=== PATIENT | male | born 1935 | race Caucasian/White ===

== ENCOUNTER → 2017-04-08 | Outpatient (CLI) | payer MEDICARE, OTHER ==
[~2017-04-08] MED LIST: 24HR ALLERGY REL5 MG PO; ACET500 PO; ACET80 PO; ALBU90OI6 INH; ASPI325 PO; ASPI81CH PO; Aspirin EC325 MG PO; BUDE10.22 INH; BUDE6HFA INH; FINA5 PO; Hair, Skin & N1 EACH PO; LEVOCETIRIZINE D5 MG PO; Lopressor 25 mg25 MG PO; MAGOXI400 PO; MULVITMIND PO; NASACORT10.8 ML NS; NASAL ALLERGY S13 ML; RAMI5 PO; TAMS.4ER PO
== END | disposition home or self-care (01) ==
LOC: LAB 11:23
DX: C61 Malignant neoplasm of prostate (principal)
CPT/HCPCS: 87070

== ENCOUNTER → 2017-05-06 | Outpatient (CLI) | payer MEDICARE, OTHER | LOC: PLD 11:36 | DX: C61 Malignant neoplasm of prostate (principal) | CPT/HCPCS: 88305 ==

== ENCOUNTER 2017-12-05 11:01 | Emergency (ER) | payer OTHER, MEDICARE ==
[~2017-12-05] VITALS: Ht 177.8 cm; Wt 104.3 kg
[~2017-12-05 11:01] MED LIST changes: -24HR ALLERGY REL5 MG PO; -ACET80 PO; -Aspirin EC325 MG PO; -FINA5 PO; -Hair, Skin & N1 EACH PO; -Lopressor 25 mg25 MG PO; -NASAL ALLERGY S13 ML
[2017-12-05] MEDS ORDERED: TAMS.4ER PO (12:22)
[2017-12-05] MEDS ORDERED: Hair, Skin & N1 EACH PO (12:23)
[2017-12-05] MEDS ORDERED: NASAL ALLERGY S13 ML (12:23)
[2017-12-05] MEDS ORDERED: BUDE10.22 INH (12:23)
[2017-12-05] MEDS ORDERED: ACET80 PO (12:24)
[2017-12-05] MEDS ORDERED: RAMI5 PO (12:24)
[2017-12-05] MEDS ORDERED: 24HR ALLERGY REL5 MG PO (12:24)
[2017-12-05] MEDS ORDERED: MAGOXI400 PO (12:25)
[2017-12-05] MEDS ORDERED: FINA5 PO (12:25)
[2017-12-05 13:39] LABS: BASOPHILS ABSOLUTE AUTO 0.02 K/mm3 (0.00-0.23); BASOPHILS PERCENT AUTO 0 % (0-2); EOSINOPHILS ABSOLUTE AUTO 0.18 K/mm3 (0.00-0.68); EOSINOPHILS PERCENT AUTO 3 % (0-6); Hematocrit 42.7 % (37.0-53.0); Hemoglobin 13.9 g/dL (13.5-17.5); IMMATURE GRAN ABSOLUTE AUTO 0.03 K/mm3 (0.00-0.10); IMMATURE GRAN PERCENT AUTO 1 % (0-1); LYMPHOCYTES ABSOLUTE AUTO 0.97 K/mm3 (0.84-5.20); LYMPHOCYTES PERCENT AUTO 15 % (21-46); MONOCYTES ABSOLUTE AUTO 0.44 K/mm3 (0.16-1.47); MONOCYTES PERCENT AUTO 7 % (4-13); Mean Corpuscular HGB Conc 32.6 g/dL (31.5-36.5); Mean Corpuscular Volume 95 fL (80-100); Mean Platelet Volume 8.9 fL (9.1-12.4); NEUTROPHILS ABSOLUTE AUTO 5.02 K/mm3 (1.96-9.15); NEUTROPHILS PERCENT AUTO 75 % (41-73); Platelet Count 208 K/mm3 (150-400); RDW Coefficient Variation 13.1 % (11.7-14.2); RDW Standard Deviation 46.2 fL (35.1-46.3); Red Blood Cell Count 4.48 M/mm3 (4.30-5.90); White Blood Cell Count 6.66 K/mm3 (4.00-11.30)
[2017-12-05 14:00] LABS: Anion Gap 6 mmol/L (6-16); Blood Urea Nitrogen 21 mg/dL (8-24); Bun/Creatinine Ratio 15.1 (12.0-20.0); CO2, Blood 29 mmol/L (21-32); Calcium, Blood 8.3 mg/dL (8.5-10.1); Chloride, Blood 108 mmol/L (98-108); Creatinine, Blood 1.39 mg/dL (0.60-1.20); Glomerular Filtration Rate 52 (60-); Glucose, Blood 94 mg/dL (70-99); Potassium, Blood 4.5 mmol/L (3.5-5.5); Sodium, Blood 143 mmol/L (136-145); Troponin I <0.015 ng/mL (0.000-0.040)
[2017-12-05] MEDS ORDERED: Aspirin EC325 MG PO (15:09)
[2017-12-05] MEDS ORDERED: Lopressor 25 mg25 MG PO (15:09)
== END 2017-12-05 15:50 | disposition home or self-care (01) ==
LOC: ER 11:01
PROVIDERS: Emergency Medicine
DX: R07.9 Chest pain, unspecified (principal); V43.54XA Car driver injured in collision with van in traffic accident, initial encounter; Z88.8 Allergy status to other drugs, medicaments and biological substances; Z88.1 Allergy status to other antibiotic agents; Z79.899 Other long term (current) drug therapy; Z79.82 Long term (current) use of aspirin; Z87.891 Personal history of nicotine dependence
CPT/HCPCS: 36415; 71046; 80048; 84484; 85025; 93005; 93010; 99284-25

== ENCOUNTER → 2021-02-26 | Outpatient (CLI) | payer MEDICARE, OTHER ==
[~2021-02-26] MED LIST changes: +24HR ALLERGY REL5 MG PO; +ACET80 PO; +Aspirin EC325 MG PO; +FINA5 PO; +Hair, Skin & N1 EACH PO; +Lopressor 25 mg25 MG PO; +NASAL ALLERGY S13 ML
[2021-02-26 19:50] LABS: Alanine Aminotransfer (ALT/SGP 14 U/L (12-78); Albumin, Blood 3.5 g/dL (3.4-5.0); Albumin/Globulin Ratio 0.9 (0.8-1.8); Alk Phos 119 U/L (50-136); Anion Gap 7 mmol/L (6-16); Aspartate Aminotrans (AST/SGOT 43 U/L (12-37); Bilirubin, Direct 0.4 mg/dL (0.0-0.3); Bilirubin, Indirect 0.7 mg/dL (0.1-0.7); Bilirubin, Total 1.1 mg/dL (0.1-1.0); Blood Urea Nitrogen 20 mg/dL (8-24); Bun/Creatinine Ratio 18.2 (12.0-20.0); CO2, Blood 26 mmol/L (21-32); Calcium, Blood 8.9 mg/dL (8.5-10.1); Chloride, Blood 110 mmol/L (98-108); Globulin, Blood 3.7 g/dL (2.2-4.0); Glomerular Filtration Rate >60 (60-); Glucose, Blood 119 mg/dL (70-99); Phosphorus, Blood 3.2 mg/dL (2.5-4.9); Potassium, Blood 4.5 mmol/L (3.5-5.5); Sodium, Blood 143 mmol/L (136-145); Total Protein, Blood 7.2 g/dL (6.4-8.2)
[2021-02-27 10:28] LABS: Thyroid Stimulating Hormone 1.09 uIU/mL (0.360-4.800); Thyroxine (T4) 9.2 ug/dL (4.5-12.1)
== END | disposition home or self-care (01) ==
LOC: LAB 18:00 → LAB SHORT 18:00
PROVIDERS: Internal Medicine Hematology & Oncology
DX: C43.51 Malignant melanoma of anal skin (principal); I10 Essential (primary) hypertension
CPT/HCPCS: 80053; 80076; 82248; 84100; 84436; 84443

== ENCOUNTER → 2021-03-05 | Outpatient (CLI) | payer MEDICARE, OTHER ==
[2021-03-05 19:02] LABS: Albumin, Blood 3.3 g/dL (3.4-5.0); Albumin/Globulin Ratio 0.9 (0.8-1.8); Bilirubin, Direct 0.4 mg/dL (0.0-0.3); Bilirubin, Indirect 0.7 mg/dL (0.1-0.7); Bilirubin, Total 1.1 mg/dL (0.1-1.0); Calcium, Blood 8.9 mg/dL (8.5-10.1); Globulin, Blood 3.8 g/dL (2.2-4.0); Potassium, Blood 4.2 mmol/L (3.5-5.5); Thyroxine (T4) 9.3 ug/dL (4.5-12.1); Total Protein, Blood 7.1 g/dL (6.4-8.2)
[2021-03-05 19:07] LABS: Creatinine, Blood 1.16 mg/dL (0.60-1.20); Thyroid Stimulating Hormone 1.05 uIU/mL (0.360-4.800)
== END | disposition home or self-care (01) ==
LOC: LAB 17:16 → LAB SHORT 17:16
PROVIDERS: Internal Medicine Hematology & Oncology
DX: C43.51 Malignant melanoma of anal skin (principal); R53.83 Other fatigue
CPT/HCPCS: 80053; 82248; 83615; 84436; 84443

== ENCOUNTER → 2021-04-12 | Outpatient (CLI) | payer MEDICARE, OTHER ==
[2021-04-12 20:47] LABS: Albumin, Blood 3.4 g/dL (3.4-5.0); Bilirubin, Direct 0.3 mg/dL (0.0-0.3); Bilirubin, Indirect 0.5 mg/dL (0.1-0.7); Bilirubin, Total 0.8 mg/dL (0.1-1.0); Bun/Creatinine Ratio 23.1 (12.0-20.0); Calcium, Blood 8.7 mg/dL (8.5-10.1); Creatinine, Blood 1.3 mg/dL (0.60-1.20); Globulin, Blood 3.4 g/dL (2.2-4.0); Phosphorus, Blood 3.9 mg/dL (2.5-4.9); Potassium, Blood 4.6 mmol/L (3.5-5.5); Thyroid Stimulating Hormone 0.448 uIU/mL (0.360-4.800); Thyroxine (T4) 5.3 ug/dL (4.5-12.1); Total Protein, Blood 6.8 g/dL (6.4-8.2)
== END | disposition home or self-care (01) ==
LOC: LAB SHORT 18:23 → LAB 18:23
PROVIDERS: Internal Medicine Hematology & Oncology
DX: C43.51 Malignant melanoma of anal skin (principal); R53.83 Other fatigue
CPT/HCPCS: 80053; 80076; 82248; 83615; 84100; 84436; 84443

== ENCOUNTER 2021-04-27 10:20 | Emergency (ER) | payer MEDICARE, OTHER ==
[~2021-04-27] VITALS: Ht 185.4 cm; Wt 97.5 kg
[~2021-04-27 10:20] MED LIST changes: -CENTRUM SILVER1 EAC2 PO; -ELIQUIS2.5 M1 PO; -Golytely Solu4000 ML PO; -MAGNESIUM OXID500 MG PO; -METO50ER PO; -Oxybutynin Chlo15 MG PO; -Ramipril10 MG PO; -TAMSULOSIN HCL0.4 M1 PO
[2021-04-27] MEDS ORDERED: ELIQUIS2.5 M1 PO (11:20)
[2021-04-27] MEDS ORDERED: Golytely Solu4000 ML PO (11:20)
[2021-04-27] MEDS ORDERED: MAGNESIUM OXID500 MG PO (11:20)
[2021-04-27] MEDS ORDERED: FINA5 PO (11:20)
[2021-04-27] MEDS ORDERED: TAMSULOSIN HCL0.4 M1 PO (11:21)
[2021-04-27] MEDS ORDERED: Ramipril10 MG PO (11:21)
[2021-04-27] MEDS ORDERED: Oxybutynin Chlo15 MG PO (11:21)
[2021-04-27] MEDS ORDERED: METO50ER PO (11:21)
[2021-04-27] MEDS ORDERED: LEVOCETIRIZINE D5 MG PO (11:22)
[2021-04-27] MEDS ORDERED: CENTRUM SILVER1 EAC2 PO (11:22)
[2021-04-27 14:04] LABS: BASOPHILS ABSOLUTE AUTO 0.04 K/mm3 (0.00-0.23); BASOPHILS PERCENT AUTO 1 % (0-2); EOSINOPHILS PERCENT AUTO 5 % (0-6); Hemoglobin 12.8 g/dL (13.5-17.5); IMMATURE GRAN ABSOLUTE AUTO 0.03 K/mm3 (0.00-0.10); IMMATURE GRAN PERCENT AUTO 1 % (0-1); LYMPHOCYTES ABSOLUTE AUTO 0.99 K/mm3 (0.84-5.20); LYMPHOCYTES PERCENT AUTO 18 % (21-46); MONOCYTES PERCENT AUTO 9 % (4-13); Mean Corpuscular HGB 30.4 pg (26.0-34.0); Mean Corpuscular HGB Conc 32.8 g/dL (31.5-36.5); Mean Corpuscular Volume 93 fL (80-100); Mean Platelet Volume 8.7 fL (9.1-12.4); NEUTROPHILS ABSOLUTE AUTO 3.72 K/mm3 (1.96-9.15); NEUTROPHILS PERCENT AUTO 67 % (41-73); Platelet Count 227 K/mm3 (150-400); RDW Coefficient Variation 13.8 % (11.7-14.2); RDW Standard Deviation 47.1 fL (35.1-46.3); Red Blood Cell Count 4.21 M/mm3 (4.30-5.90); White Blood Cell Count 5.58 K/mm3 (4.00-11.30)
[2021-04-27 14:17] LABS: Albumin, Blood 2.9 g/dL (3.4-5.0); Albumin/Globulin Ratio 0.7 (0.8-1.8); Bilirubin, Total 1.1 mg/dL (0.1-1.0); Bun/Creatinine Ratio 17.5 (12.0-20.0); Calcium, Blood 8.8 mg/dL (8.5-10.1); Creatinine, Blood 1.6 mg/dL (0.60-1.20); Potassium, Blood 4.5 mmol/L (3.5-5.5); Total Protein, Blood 6.9 g/dL (6.4-8.2)
== END 2021-04-27 17:20 | disposition home or self-care (01) ==
LOC: ER 10:20
PROVIDERS: Physician Assistant
DX: R59.0 Localized enlarged lymph nodes (principal); C43.9 Malignant melanoma of skin, unspecified; M79.605 Pain in left leg; J45.909 Unspecified asthma, uncomplicated; M10.9 Gout, unspecified; I10 Essential (primary) hypertension; Z79.899 Other long term (current) drug therapy; Z88.8 Allergy status to other drugs, medicaments and biological substances; Z91.048 Other nonmedicinal substance allergy status; Z88.6 Allergy status to analgesic agent; Z87.891 Personal history of nicotine dependence; Z88.1 Allergy status to other antibiotic agents
CPT/HCPCS: 36415; 74177; 80053; 85025; 93005; 93010; 93971; 99284-25; J7030; Q9967

== ENCOUNTER → 2021-04-27 | Outpatient (CLI) | payer MEDICARE, OTHER ==
[~2021-04-27] MED LIST changes: +CENTRUM SILVER1 EAC2 PO; +ELIQUIS2.5 M1 PO; +Golytely Solu4000 ML PO; +MAGNESIUM OXID500 MG PO; +METO50ER PO; +Oxybutynin Chlo15 MG PO; +Ramipril10 MG PO; +TAMSULOSIN HCL0.4 M1 PO
[2021-04-27 19:07] LABS: Source, Urine Voided
[2021-04-27 19:37] LABS: Bilirubin, Urine Neg (Neg); Blood, Urine 3+ (Neg); Glucose Qualitative, Urine Neg (Neg); Ketones, Urine 1+ (Neg); Leukocyte Esterase, Urine 3+ (Neg); Nitrite, Urine Pos (Neg); Protein, Urine 2+ (Neg); Urobilinogen, Urine NORM (Normal)
[2021-04-27 19:53] LABS: Appearance, Urine Hazy (Clear); Color, Urine Pale Yellow (P-Yellow)
[2021-04-27 19:54] LABS: Amorphous Light (0-Heavy); Bacteria Few /hpf; Squamous Epithelial Cells Few /hpf (Few)
== END ==
LOC: LAB SHORT 17:50
PROVIDERS: Internal Medicine Hematology & Oncology
DX: C43.51 Malignant melanoma of anal skin (principal); R41.82 Altered mental status, unspecified
CPT/HCPCS: 81001; 87086

== ENCOUNTER → 2021-05-08 | Outpatient (CLI) | payer MEDICARE, OTHER ==
[~2021-05-08] MED LIST changes: +CENTRUM SILVER1 EAC2 PO; +ELIQUIS2.5 M1 PO; +Golytely Solu4000 ML PO; +MAGNESIUM OXID500 MG PO; +METO50ER PO; +Oxybutynin Chlo15 MG PO; +Ramipril10 MG PO; +TAMSULOSIN HCL0.4 M1 PO
[2021-05-08 18:12] LABS: Albumin, Blood 3.2 g/dL (3.4-5.0); Albumin/Globulin Ratio 0.9 (0.8-1.8); Bilirubin, Total 0.8 mg/dL (0.1-1.0); Bun/Creatinine Ratio 16.1 (12.0-20.0); Calcium, Blood 8.8 mg/dL (8.5-10.1); Creatinine, Blood 1.49 mg/dL (0.60-1.20); Globulin, Blood 3.4 g/dL (2.2-4.0); Potassium, Blood 4.5 mmol/L (3.5-5.5); Thyroid Stimulating Hormone 0.112 uIU/mL (0.360-4.800); Thyroxine (T4) 5.4 ug/dL (4.5-12.1); Total Protein, Blood 6.6 g/dL (6.4-8.2)
== END ==
LOC: LAB SHORT 09:30
PROVIDERS: Internal Medicine Hematology & Oncology
DX: C43.51 Malignant melanoma of anal skin (principal); R53.83 Other fatigue
CPT/HCPCS: 36415; 80053; 83615; 84100; 84436; 84443

== ENCOUNTER 2021-06-02 19:02 | Inpatient (IN) | payer OTHER ==
[~2021-06-02] VITALS: Ht 193 cm; Wt 103.0 kg
[2021-06-02 20:19] LABS: BASOPHILS ABSOLUTE AUTO 0.04 K/mm3 (0.00-0.23); BASOPHILS PERCENT AUTO 1 % (0-2); EOSINOPHILS ABSOLUTE AUTO 0.49 K/mm3 (0.00-0.68); EOSINOPHILS PERCENT AUTO 6 % (0-6); Hemoglobin 12.9 g/dL (13.5-17.5); IMMATURE GRAN ABSOLUTE AUTO 0.02 K/mm3 (0.00-0.10); IMMATURE GRAN PERCENT AUTO 0 % (0-1); LYMPHOCYTES ABSOLUTE AUTO 1.73 K/mm3 (0.84-5.20); LYMPHOCYTES PERCENT AUTO 23 % (21-46); MONOCYTES ABSOLUTE AUTO 0.79 K/mm3 (0.16-1.47); MONOCYTES PERCENT AUTO 10 % (4-13); Mean Corpuscular HGB 30.4 pg (26.0-34.0); Mean Corpuscular HGB Conc 33.1 g/dL (31.5-36.5); Mean Corpuscular Volume 92 fL (80-100); Mean Platelet Volume 9.3 fL (9.1-12.4); NEUTROPHILS ABSOLUTE AUTO 4.57 K/mm3 (1.96-9.15); NEUTROPHILS PERCENT AUTO 60 % (41-73); Platelet Count 231 K/mm3 (150-400); RDW Coefficient Variation 14.2 % (11.7-14.2); RDW Standard Deviation 47.8 fL (35.1-46.3); Red Blood Cell Count 4.25 M/mm3 (4.30-5.90); White Blood Cell Count 7.64 K/mm3 (4.00-11.30)
[2021-06-02 20:31] LABS: Albumin/Globulin Ratio 0.7 (0.8-1.8); Bilirubin, Total 1.2 mg/dL (0.1-1.0); Bun/Creatinine Ratio 21.1 (12.0-20.0); Calcium, Blood 8.8 mg/dL (8.5-10.1); Creatinine, Blood 1.9 mg/dL (0.60-1.20); Globulin, Blood 4.1 g/dL (2.2-4.0); Potassium, Blood 4.3 mmol/L (3.5-5.5); Total Protein, Blood 7.1 g/dL (6.4-8.2)
[2021-06-02 21:29] LABS: Source, Urine Straight Cath
[2021-06-02 21:32] LABS: Bilirubin, Urine Neg (Neg); Blood, Urine Neg (Neg); Glucose Qualitative, Urine Neg (Neg); Ketones, Urine Neg (Neg); Leukocyte Esterase, Urine Neg (Neg); Nitrite, Urine Neg (Neg); Protein, Urine 1+ (Neg); Urobilinogen, Urine NORM (Normal)
[2021-06-02 21:42] LABS: Appearance, Urine Clear (Clear); Color, Urine Pale Yellow (P-Yellow)
[2021-06-02 23:03] LABS: Influenza A, PCR NEGATIVE (NEGATIVE); Influenza B, PCR NEGATIVE (NEGATIVE); Resp Syncytial Virus, PCR NEGATIVE (NEGATIVE); SARS-Cov-2 (COVID-19) PCR, MMC NEGATIVE (NEGATIVE)
[2021-06-02 23:59] LABS: Free Thyroxine 1.12 ng/dL (0.70-1.60)
[2021-06-03 00:02] LABS: Thyroid Stimulating Hormone 1.13 uIU/mL (0.360-4.800)
--- NOTE | 2021-06-03 07:06 | NUR ---
SHIFT SUMMARY PATIENT ALERT AND ORIENTED X3 WITH SOME CONFUSION. EXTREMELY WEAK AND UNABLE TO AMBULATE WITHOUT ASSISTANCE. SKIN ISSUES PHOTOGRAPHED AND PICTURES PLACED IN CHART.NO ACUTE ISSUES NOTED OVERNIGHT. BED IN LOWEST POSITION WITH WHEELS LOCKED AND ALARM ON. CALL LIGHT WITHIN REACH. REPORT GIVEN TO ONCOMING RN.
--- NOTE | 2021-06-03 08:00 | NUR ---
pt laying in bed, did attempt to climb oob this am, with legs off of bed, will keep bed alarm activated, a/ox3 with periods of confusion, lungs are clear, dim in bases, on r/a, resp even and unlabored, no cough noted, hrirr, tele in place running afib in the 70's, no edema noted, ppp+2, cap refill <3sec, v.s. stable, afebrile, iv site to lwrist, infusing fluid as ordered, btx4, abd flat soft nontender, incont of urine and stool, with wound to buttock dressing in place, ciara area is excoriated with a small sore on penis, magali, weak, PT working with him at this time, he was able to stand but is shakey and very weak, bety, call light in reach.
[2021-06-03 09:26] LABS: BASOPHILS ABSOLUTE AUTO 0.04 K/mm3 (0.00-0.23); BASOPHILS PERCENT AUTO 1 % (0-2); EOSINOPHILS ABSOLUTE AUTO 0.99 K/mm3 (0.00-0.68); EOSINOPHILS PERCENT AUTO 16 % (0-6); Hematocrit 38.3 % (37.0-53.0); Hemoglobin 12.2 g/dL (13.5-17.5); IMMATURE GRAN ABSOLUTE AUTO 0.02 K/mm3 (0.00-0.10); IMMATURE GRAN PERCENT AUTO 0 % (0-1); LYMPHOCYTES ABSOLUTE AUTO 1.35 K/mm3 (0.84-5.20); LYMPHOCYTES PERCENT AUTO 22 % (21-46); MONOCYTES ABSOLUTE AUTO 0.67 K/mm3 (0.16-1.47); MONOCYTES PERCENT AUTO 11 % (4-13); Mean Corpuscular HGB 29.8 pg (26.0-34.0); Mean Corpuscular HGB Conc 31.9 g/dL (31.5-36.5); Mean Corpuscular Volume 94 fL (80-100); Mean Platelet Volume 9.1 fL (9.1-12.4); NEUTROPHILS ABSOLUTE AUTO 3.18 K/mm3 (1.96-9.15); NEUTROPHILS PERCENT AUTO 51 % (41-73); Platelet Count 213 K/mm3 (150-400); RDW Coefficient Variation 14.2 % (11.7-14.2); RDW Standard Deviation 48.9 fL (35.1-46.3); Red Blood Cell Count 4.09 M/mm3 (4.30-5.90); White Blood Cell Count 6.25 K/mm3 (4.00-11.30)
[2021-06-03 09:41] LABS: Albumin, Blood 2.8 g/dL (3.4-5.0); Albumin/Globulin Ratio 0.8 (0.8-1.8); Bilirubin, Total 1.6 mg/dL (0.1-1.0); Bun/Creatinine Ratio 24.1 (12.0-20.0); Calcium, Blood 8.6 mg/dL (8.5-10.1); Creatinine, Blood 1.58 mg/dL (0.60-1.20); Globulin, Blood 3.7 g/dL (2.2-4.0); Potassium, Blood 4.2 mmol/L (3.5-5.5); Total Protein, Blood 6.5 g/dL (6.4-8.2)
[2021-06-03 10:41] LABS: Source, Urine Foley catheter
--- NOTE | 2021-06-03 10:41 | NUR ---
Pt was found to have 802 mls in bladder, after unsucessful attempt to void, placed a 14f bustos cath without diff, after cleaning and using site technician, return of clear yellow urine, pt. tolerated well, Dr. Tovar in to see him and said to leave the bustos in place. call light in reach.
[2021-06-03 10:43] LABS: Bilirubin, Urine Neg (Neg); Blood, Urine Neg (Neg); Glucose Qualitative, Urine Neg (Neg); Ketones, Urine Neg (Neg); Leukocyte Esterase, Urine Neg (Neg); Nitrite, Urine Neg (Neg); Protein, Urine 1+ (Neg); Specific Gravity, Urine 1.015 (1.003-1.022); Urobilinogen, Urine NORM (Normal)
[2021-06-03 10:51] LABS: Appearance, Urine Clear (Clear); Color, Urine Yellow (P-Yellow)
--- NOTE | 2021-06-03 16:49 | NUR ---
pt has been repositioned, he said his car will be here shortly, asked him where his, he didn't know, reoriented that he is in the hosp, he said but my is right there, I can see her. no further changes. call light in reach.
--- NOTE | 2021-06-03 18:19 | NUR ---
pt has a tremor to his arms, and is confused, and hallucinating. no further changes. call light in reach.
--- NOTE | 2021-06-03 23:28 | NUR ---
PT with tele monitoring & tele mail clerk calls to say she is unable to get good reading despite multiple interventions. PT had IV azithromycin infusing IV via lt FA IV & i found he had pulled his iv out when ABX was running. PT refused replacement of tele. Attempted to restart IV lt wrist but unable. Will reattempt to establish IV access. Will ask MD about dc tele?
[2021-06-04 05:32] LABS: BASOPHILS ABSOLUTE AUTO 0.04 K/mm3 (0.00-0.23); BASOPHILS PERCENT AUTO 1 % (0-2); EOSINOPHILS ABSOLUTE AUTO 0.66 K/mm3 (0.00-0.68); EOSINOPHILS PERCENT AUTO 9 % (0-6); Hematocrit 35.5 % (37.0-53.0); Hemoglobin 11.4 g/dL (13.5-17.5); IMMATURE GRAN ABSOLUTE AUTO 0.02 K/mm3 (0.00-0.10); IMMATURE GRAN PERCENT AUTO 0 % (0-1); LYMPHOCYTES ABSOLUTE AUTO 1.29 K/mm3 (0.84-5.20); LYMPHOCYTES PERCENT AUTO 17 % (21-46); MONOCYTES PERCENT AUTO 11 % (4-13); Mean Corpuscular HGB Conc 32.1 g/dL (31.5-36.5); Mean Corpuscular Volume 93 fL (80-100); NEUTROPHILS ABSOLUTE AUTO 4.81 K/mm3 (1.96-9.15); NEUTROPHILS PERCENT AUTO 63 % (41-73); Platelet Count 211 K/mm3 (150-400); RDW Coefficient Variation 14.1 % (11.7-14.2); RDW Standard Deviation 48.6 fL (35.1-46.3); White Blood Cell Count 7.62 K/mm3 (4.00-11.30)
[2021-06-04 06:00] LABS: Albumin, Blood 2.6 g/dL (3.4-5.0); Albumin/Globulin Ratio 0.7 (0.8-1.8); Bilirubin, Total 1.2 mg/dL (0.1-1.0); Calcium, Blood 8.4 mg/dL (8.5-10.1); Creatinine, Blood 1.5 mg/dL (0.60-1.20); Globulin, Blood 3.6 g/dL (2.2-4.0); Magnesium, Blood 2.2 mg/dL (1.6-2.4); Phosphorus, Blood 3.5 mg/dL (2.5-4.9); Total Protein, Blood 6.2 g/dL (6.4-8.2)
--- NOTE | 2021-06-04 07:14 | NUR ---
86 year old Male with DNR status, tele monitoring had remved his tele around 2129. Notified tele monitor of PT refusal to wear tele monitor. Finally allowed staff hugo huynh
--- NOTE | 2021-06-04 18:34 | NUR ---
PT DROWSY/TIRED MOST OF SHIFT. PATIENT WAS ABLE TO DRINK MORE FLUIDS TODAY AND EAT A LITTLE MORE THAN YESTERDAY. PT REFUSED TO WORK WITH OT/PT. PATIENT STATED MULTIPLE TIMES "HES TIRED AND WANTS TO LAY DOWN" WE SAT HIM CLOSE TO EDGE OF THE BED. OT RECOMENDED POSSIBLY GETTING A PALLALATIVE CONSULT-RELAYED MESSAGED TO . HE SAID HE WILL SPEAK TO SON TOMORROW. BLADDER SCANNED AT 12PM-366ML AND AGAIN AT 1730 >556[address] DR[address] MAK NOTIFIED. ORDER TO PUT IN BROUSSARD. BROUSSARD INSERTED AT 6:10PM. DRAINED 775ML. UPDATED SON DARLEEN. PT NOW RESTING IN BED, CALL LIGHT IN REACH. BED ALARM ON.
--- NOTE | 2021-06-05 05:15 | NUR ---
elderly [employer]le [employer] person[employer] 3 years who recently completes chemo for melanoma & had pet scan post chemo continues with intermittant confusion. He has pulled his 3rd IV out despite having them covered & well secured. He was recieving IV fluids at 125 ml for dehydration. PT needs fed takes 2 ensures this shift with assist. Fed several soft items. Changed from gen diet to soft bite sized. PT has tolerated tele tonight he had repeatedly removed it the night before. Afib rate controlled at 80. Room air with occ nonprod cough. PT does not tolerate laying flat. HE os vey stiff & needs 2 max assist for bed mobility & was unwilling to work with PT OT due to weakness. Had to have bustos cath placed for persistant urinary retention, unable to void. Medicated for co pain x 1 with ultram 50 mg with helpful effect.
[2021-06-05 05:47] LABS: BASOPHILS ABSOLUTE AUTO 0.03 K/mm3 (0.00-0.23); BASOPHILS PERCENT AUTO 0 % (0-2); EOSINOPHILS ABSOLUTE AUTO 1.09 K/mm3 (0.00-0.68); EOSINOPHILS PERCENT AUTO 13 % (0-6); Hematocrit 33.5 % (37.0-53.0); Hemoglobin 10.8 g/dL (13.5-17.5); IMMATURE GRAN ABSOLUTE AUTO 0.01 K/mm3 (0.00-0.10); IMMATURE GRAN PERCENT AUTO 0 % (0-1); LYMPHOCYTES ABSOLUTE AUTO 1.43 K/mm3 (0.84-5.20); LYMPHOCYTES PERCENT AUTO 17 % (21-46); MONOCYTES ABSOLUTE AUTO 0.68 K/mm3 (0.16-1.47); MONOCYTES PERCENT AUTO 8 % (4-13); Mean Corpuscular HGB 30.3 pg (26.0-34.0); Mean Corpuscular HGB Conc 32.2 g/dL (31.5-36.5); Mean Corpuscular Volume 94 fL (80-100); Mean Platelet Volume 9.1 fL (9.1-12.4); NEUTROPHILS ABSOLUTE AUTO 5.04 K/mm3 (1.96-9.15); NEUTROPHILS PERCENT AUTO 61 % (41-73); Platelet Count 213 K/mm3 (150-400); RDW Coefficient Variation 14.2 % (11.7-14.2); RDW Standard Deviation 48.7 fL (35.1-46.3); Red Blood Cell Count 3.57 M/mm3 (4.30-5.90); White Blood Cell Count 8.28 K/mm3 (4.00-11.30)
[2021-06-05 06:11] LABS: Albumin, Blood 2.3 g/dL (3.4-5.0); Albumin/Globulin Ratio 0.7 (0.8-1.8); Bilirubin, Total 0.9 mg/dL (0.1-1.0); Bun/Creatinine Ratio 23.6 (12.0-20.0); Calcium, Blood 8.1 mg/dL (8.5-10.1); Creatinine, Blood 1.27 mg/dL (0.60-1.20); Globulin, Blood 3.5 g/dL (2.2-4.0); Magnesium, Blood 2.2 mg/dL (1.6-2.4); Potassium, Blood 4.1 mmol/L (3.5-5.5); Total Protein, Blood 5.8 g/dL (6.4-8.2)
[2021-06-05 07:51] LABS: Creatine Kinase MB 6.5 ng/mL (0.0-3.6); Creatine Kinase MB Index 0.3 (0.0-4.0)
[2021-06-05 16:36] LABS: Creatine Kinase MB 10.8 ng/mL (0.0-3.6); Creatine Kinase MB Index 0.5 (0.0-4.0)
--- NOTE | 2021-06-05 18:47 | NUR ---
PT MORE ALERT TODAY. PT WAS ABLE TO PARTICIPATE MORE WITH PHSYICAL THERAPY AND OT. PT STATES HE'S FEELING A LITTLE BETTER. PT NOW RESTING IN BED, HAS NO COMPLAINTS. BED IN LOWEST POSITION, CALL LIGHT WITHIN REACH. BED ALARM ON.
[2021-06-06 05:33] LABS: BASOPHILS ABSOLUTE AUTO 0.03 K/mm3 (0.00-0.23); BASOPHILS PERCENT AUTO 0 % (0-2); EOSINOPHILS ABSOLUTE AUTO 1.44 K/mm3 (0.00-0.68); EOSINOPHILS PERCENT AUTO 18 % (0-6); Hematocrit 33.7 % (37.0-53.0); IMMATURE GRAN ABSOLUTE AUTO 0.05 K/mm3 (0.00-0.10); IMMATURE GRAN PERCENT AUTO 1 % (0-1); LYMPHOCYTES ABSOLUTE AUTO 1.36 K/mm3 (0.84-5.20); LYMPHOCYTES PERCENT AUTO 17 % (21-46); MONOCYTES ABSOLUTE AUTO 0.73 K/mm3 (0.16-1.47); MONOCYTES PERCENT AUTO 9 % (4-13); Mean Corpuscular HGB 30.5 pg (26.0-34.0); Mean Corpuscular HGB Conc 32.6 g/dL (31.5-36.5); Mean Corpuscular Volume 93 fL (80-100); Mean Platelet Volume 9.2 fL (9.1-12.4); NEUTROPHILS ABSOLUTE AUTO 4.64 K/mm3 (1.96-9.15); NEUTROPHILS PERCENT AUTO 56 % (41-73); Platelet Count 238 K/mm3 (150-400); RDW Standard Deviation 48.2 fL (35.1-46.3); Red Blood Cell Count 3.61 M/mm3 (4.30-5.90); White Blood Cell Count 8.25 K/mm3 (4.00-11.30)
[2021-06-06 06:20] LABS: Alanine Aminotransfer (ALT/SGP 42 U/L (12-78); Albumin, Blood 2.3 g/dL (3.4-5.0); Albumin/Globulin Ratio 0.6 (0.8-1.8); Alk Phos 111 U/L (50-136); Anion Gap 7 mmol/L (6-16); Aspartate Aminotrans (AST/SGOT 179 U/L (12-37); Bilirubin, Total 0.9 mg/dL (0.1-1.0); Blood Urea Nitrogen 26 mg/dL (8-24); Bun/Creatinine Ratio 24.3 (12.0-20.0); CO2, Blood 24 mmol/L (21-32); Calcium, Blood 7.5 mg/dL (8.5-10.1); Chloride, Blood 104 mmol/L (98-108); Creatinine, Blood 1.07 mg/dL (0.60-1.20); Globulin, Blood 3.7 g/dL (2.2-4.0); Glomerular Filtration Rate >60 (60-); Glucose, Blood 106 mg/dL (70-99); Potassium, Blood 4.6 mmol/L (3.5-5.5); Sodium, Blood 135 mmol/L (136-145)
[2021-06-06 06:28] LABS: Creatine Kinase MB 5.9 ng/mL (0.0-3.6)
--- NOTE | 2021-06-06 06:40 | NUR ---
PT continues on IVF to privide support for ARF. He needs fed & does need cues & encouragement to drink. He drinks 2 ensures with assist. Kendrick cath continues for acute urinaryt retention . Max 2 assist for bed mobility toileting.
[2021-06-06 06:45] LABS: CPK Creatine Kinase 1354 U/L (39-308); Creatine Kinase MB Index 0.4 (0.0-4.0)
[2021-06-06 13:45] LABS: Albumin, Blood 2.3 g/dL (3.4-5.0); Anion Gap 7 mmol/L (6-16); Blood Urea Nitrogen 26 mg/dL (8-24); Bun/Creatinine Ratio 27.3 (12.0-20.0); CO2, Blood 24 mmol/L (21-32); Calcium, Blood 7.9 mg/dL (8.5-10.1); Chloride, Blood 103 mmol/L (98-108); Creatinine, Blood 0.95 mg/dL (0.60-1.20); Glomerular Filtration Rate >60 (60-); Glucose, Blood 111 mg/dL (70-99); Potassium, Blood 4.6 mmol/L (3.5-5.5); Sodium, Blood 134 mmol/L (136-145)
[2021-06-06 13:47] LABS: CPK Creatine Kinase 1030 U/L (39-308)
[2021-06-06 14:13] LABS: Creatine Kinase MB 3.8 ng/mL (0.0-3.6); Creatine Kinase MB Index 0.4 (0.0-4.0)
--- NOTE | 2021-06-06 18:29 | NUR ---
PT ALERT, CONFUSED CONVERSATION THROUGHOUT THE DAY. PATIENT COMPLAINING OF SOB AND BILATERAL WHEEZES. PT RECIEVED LASIX/BREATHING TREATMENT AND STOPPED THE FLUIDS FOR THE AFTERNOON. REPEAT CXR WAS TAKEN. FLUIDS RESTARTED. PT DENIES ANY PAIN OR SOB. PT NOW RESTING IN BED. BED IN LOWEST POSITION AND BED ALARM ON.
[2021-06-06 19:51] LABS: Albumin, Blood 2.5 g/dL (3.4-5.0); Anion Gap 7 mmol/L (6-16); Blood Urea Nitrogen 27 mg/dL (8-24); Bun/Creatinine Ratio 24.1 (12.0-20.0); CO2, Blood 22 mmol/L (21-32); CPK Creatine Kinase 758 U/L (39-308); Calcium, Blood 8.2 mg/dL (8.5-10.1); Chloride, Blood 104 mmol/L (98-108); Creatinine, Blood 1.12 mg/dL (0.60-1.20); Glomerular Filtration Rate >60 (60-); Glucose, Blood 304 mg/dL (70-99); Phosphorus, Blood 3.9 mg/dL (2.5-4.9); Potassium, Blood 4.3 mmol/L (3.5-5.5); Sodium, Blood 133 mmol/L (136-145)
[2021-06-06 20:25] LABS: Creatine Kinase MB 2.9 ng/mL (0.0-3.6); Creatine Kinase MB Index 0.4 (0.0-4.0)
[2021-06-07 04:18] LABS: BASOPHILS ABSOLUTE AUTO 0.01 K/mm3 (0.00-0.23); BASOPHILS PERCENT AUTO 0 % (0-2); EOSINOPHILS PERCENT AUTO 0 % (0-6); Hematocrit 32.8 % (37.0-53.0); IMMATURE GRAN ABSOLUTE AUTO 0.05 K/mm3 (0.00-0.10); IMMATURE GRAN PERCENT AUTO 1 % (0-1); LYMPHOCYTES ABSOLUTE AUTO 0.56 K/mm3 (0.84-5.20); LYMPHOCYTES PERCENT AUTO 9 % (21-46); MONOCYTES ABSOLUTE AUTO 0.37 K/mm3 (0.16-1.47); MONOCYTES PERCENT AUTO 6 % (4-13); Mean Corpuscular HGB 30.2 pg (26.0-34.0); Mean Corpuscular HGB Conc 33.5 g/dL (31.5-36.5); Mean Corpuscular Volume 90 fL (80-100); NEUTROPHILS ABSOLUTE AUTO 5.42 K/mm3 (1.96-9.15); NEUTROPHILS PERCENT AUTO 85 % (41-73); Platelet Count 257 K/mm3 (150-400); RDW Coefficient Variation 13.4 % (11.7-14.2); RDW Standard Deviation 44.5 fL (35.1-46.3); Red Blood Cell Count 3.64 M/mm3 (4.30-5.90); White Blood Cell Count 6.41 K/mm3 (4.00-11.30)
[2021-06-07 04:43] LABS: Albumin, Blood 2.5 g/dL (3.4-5.0); Anion Gap 8 mmol/L (6-16); Blood Urea Nitrogen 28 mg/dL (8-24); Bun/Creatinine Ratio 27.7 (12.0-20.0); CO2, Blood 24 mmol/L (21-32); CPK Creatine Kinase 613 U/L (39-308); Calcium, Blood 8.3 mg/dL (8.5-10.1); Chloride, Blood 104 mmol/L (98-108); Creatinine, Blood 1.01 mg/dL (0.60-1.20); Glomerular Filtration Rate >60 (60-); Glucose, Blood 217 mg/dL (70-99); Magnesium, Blood 2.1 mg/dL (1.6-2.4); Phosphorus, Blood 3.2 mg/dL (2.5-4.9); Potassium, Blood 4.6 mmol/L (3.5-5.5); Sodium, Blood 136 mmol/L (136-145)
[2021-06-07 05:31] LABS: Creatine Kinase MB Index 0.3 (0.0-4.0)
[2021-06-07 09:25] LABS: Albumin, Blood 2.6 g/dL (3.4-5.0); Albumin/Globulin Ratio 0.6 (0.8-1.8); Bilirubin, Direct 0.2 mg/dL (0.0-0.3); Bilirubin, Indirect 0.5 mg/dL (0.1-0.7); Bilirubin, Total 0.7 mg/dL (0.1-1.0); Total Protein, Blood 6.6 g/dL (6.4-8.2)
[2021-06-07 12:02] LABS: Albumin, Blood 2.5 g/dL (3.4-5.0); Anion Gap 3 mmol/L (6-16); Blood Urea Nitrogen 28 mg/dL (8-24); Bun/Creatinine Ratio 26.4 (12.0-20.0); CO2, Blood 26 mmol/L (21-32); CPK Creatine Kinase 493 U/L (39-308); Calcium, Blood 8.4 mg/dL (8.5-10.1); Chloride, Blood 108 mmol/L (98-108); Creatinine, Blood 1.06 mg/dL (0.60-1.20); Glomerular Filtration Rate >60 (60-); Glucose, Blood 188 mg/dL (70-99); Phosphorus, Blood 3.2 mg/dL (2.5-4.9); Potassium, Blood 4.3 mmol/L (3.5-5.5); Sodium, Blood 137 mmol/L (136-145)
[2021-06-07 12:34] LABS: Creatine Kinase MB 2.1 ng/mL (0.0-3.6); Creatine Kinase MB Index 0.4 (0.0-4.0)
[2021-06-07 15:26] LABS: International Normalized Ratio 1.16; Prothrombin Time Results 12.1 Sec (9.7-11.5)
--- NOTE | 2021-06-07 19:23 | NUR ---
PT TALKING MORE BUT HAVING MORE CONFUSED CONVERSATION. CT AND MRI OF HEAD ORDERED. PT CONTINUES TO PULL OUT HIS IV'S AND TELEMONITOR. EDUCATED PATIENT ON KEEPING THE TELE ON AND IV IN. PT STATES HE UNDERSTANDS BUT HE NEEDS CONTINUED REINFORCEMENT DUE TO INCREASED CONFUSION . DAILY DRESSING CHANGED. PT NOW RESTING IN BED. DENIES ANY PAIN. CALL LIGHT WITHIN IN REACH. BED IN LOWEST POSITION. BED ALARM ON.
[2021-06-08 04:31] LABS: BASOPHILS ABSOLUTE AUTO 0.01 K/mm3 (0.00-0.23); BASOPHILS PERCENT AUTO 0 % (0-2); EOSINOPHILS ABSOLUTE AUTO 0.08 K/mm3 (0.00-0.68); EOSINOPHILS PERCENT AUTO 1 % (0-6); Hematocrit 31.5 % (37.0-53.0); Hemoglobin 10.4 g/dL (13.5-17.5); IMMATURE GRAN ABSOLUTE AUTO 0.09 K/mm3 (0.00-0.10); IMMATURE GRAN PERCENT AUTO 1 % (0-1); LYMPHOCYTES ABSOLUTE AUTO 1.14 K/mm3 (0.84-5.20); LYMPHOCYTES PERCENT AUTO 12 % (21-46); MONOCYTES ABSOLUTE AUTO 0.74 K/mm3 (0.16-1.47); MONOCYTES PERCENT AUTO 8 % (4-13); Mean Corpuscular HGB 30.4 pg (26.0-34.0); Mean Corpuscular Volume 92 fL (80-100); Mean Platelet Volume 8.6 fL (9.1-12.4); NEUTROPHILS PERCENT AUTO 78 % (41-73); Platelet Count 304 K/mm3 (150-400); RDW Standard Deviation 47.7 fL (35.1-46.3); Red Blood Cell Count 3.42 M/mm3 (4.30-5.90); White Blood Cell Count 9.26 K/mm3 (4.00-11.30)
[2021-06-08 04:58] LABS: Alanine Aminotransfer (ALT/SGP 40 U/L (12-78); Albumin, Blood 2.4 g/dL (3.4-5.0); Albumin/Globulin Ratio 0.6 (0.8-1.8); Alk Phos 118 U/L (50-136); Anion Gap 3 mmol/L (6-16); Aspartate Aminotrans (AST/SGOT 149 U/L (12-37); Bilirubin, Total 0.5 mg/dL (0.1-1.0); Blood Urea Nitrogen 30 mg/dL (8-24); Bun/Creatinine Ratio 28.8 (12.0-20.0); CO2, Blood 31 mmol/L (21-32); CPK Creatine Kinase 236 U/L (39-308); Calcium, Blood 8.7 mg/dL (8.5-10.1); Chloride, Blood 107 mmol/L (98-108); Creatine Kinase MB 1.2 ng/mL (0.0-3.6); Creatine Kinase MB Index 0.5 (0.0-4.0); Creatinine, Blood 1.04 mg/dL (0.60-1.20); Globulin, Blood 3.7 g/dL (2.2-4.0); Glomerular Filtration Rate >60 (60-); Glucose, Blood 121 mg/dL (70-99); Magnesium, Blood 2.3 mg/dL (1.6-2.4); Potassium, Blood 4.4 mmol/L (3.5-5.5); Sodium, Blood 141 mmol/L (136-145); Total Protein, Blood 6.1 g/dL (6.4-8.2)
--- NOTE | 2021-06-08 06:20 | NUR ---
Patient is alert and oriented x3 forgetful of situation. Patient is redirectable. He attempts to take out his IV and plays with his telemetry stickers ending in removing them. Complains of back and coccyx pain. Patient has bustos cathether, urine is yellow clear and odorless good output. Q2 turn completed. Snacks provided. Call light within reach.
--- NOTE | 2021-06-08 09:00 | NUR ---
PT PLEASANT COOP A/O X2-3. FORGETFUL. TY SHORT TERM. 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 H/R REG, NO MURMER NOTED. PER TELE AFIB AT 63. LUNGS CLEAR, RESP EASY, UNLABORED. ON R.A. BT 4 LAST BM NOT SURE. VOIDS BROUSSARD CATH, DRAINING YELLOW FLUID. 2-3 MAX ASST. IN LIFT ROOM. BED IN LOW POSITION, CLL LITE IN REACH, BED ALARN ON FOR SFAETY
--- NOTE | 2021-06-08 18:45 | NUR ---
PT PLEASANT TODAY. HAS BEEN A/O X2-3 WITH FEW DETAILS OF CURRENT. SOME WHEEZY THIS SHY. DID GIVE LASIX ALREADY, CALLED RT TO BREATHING TX. WILL PASS TO [facility]. EATING SOME. TURNING REGULARLY TO KEEP OFF BOTTOM. HAS SORES. TRYING TO KEEP ON SIDES. SOMEWHAT RESISTANT AND TURNS BACK SOME. NO OTHER CONCERNS NOTED. BED IN LOW POSITION,C ALL LILTE IN REACH, BED ALARM ON FOR SAFTEY
--- NOTE | 2021-06-09 04:39 | NUR ---
PT IS ASLEEP THIS MORNING. PT IS ALERT AND ORIENTED X2-3 CAN BE FORGETFUL, ON RA PT DOES HAVE BILATERAL EXPIRATORY WHEEZING BUT DOES NOT C/O DIFFICULTY BREATHING , TELE- AFIB, NO BM TONIGHT, BROUSSARD IS INTACT AND DRAINING YELLOW URINE. PT WAS TIRED THIS EVENING AND HAS SLEPT MOST OF THE NIGHT PEACEFULLY. Q2H TURNS TOLERATED. NO C/O PAIN, SOB OR N/V. PT BELONGINGS AND CALL LIGHT WITHIN REACH.
--- NOTE | 2021-06-09 18:12 | NUR ---
PT PLESANT COOP TODAY A/O 2-3. DID NOT HEAR FROM SON TODAY. PT REGULARLY MOVES BACK TO HIS BACK. ENCOURAGE TO KEEP OFF BACK/BOTTOM MUCH POSSIBLE AND MOVE HIM BACK TO HIS SIDES REGULARLY. DR AWARE HIS BP SOFT THIS AM. NO NEW CONCERNS NOTED. BED IN LOW POSITION, CALL LITE IN REACH, BED ALARM ON FOR SAFETY
--- NOTE | 2021-06-10 06:32 | NUR ---
PT IS ASLEEP THIS MORNING. PT WAS MORE ALERT THIS EVENING AND LESS SLEEPY. PT ALERT AND ORIENTED X2, NEURO CHECKS HAVE BEEN CONSISTENT ALL NIGHT WITH NO CHANGES, ON RA WITH AUDIBLE EXPIRATORY WHEEZING, NOT MONITORED, BROUSSARD IS INTACT AND DRAINING YELLOW CLEAR URINE WITH GOOD OUTPUT. VITALS HAVE BEEN STABLE, NO ACUTE EVENTS OVERNIGHT. PT BELONINGS AND CALL LIGHT WITHIN REACH.
--- NOTE | 2021-06-10 12:37 | NUR ---
AM NOTE - PT MUMBLING AND HARD TO WAKE UP THIS MORNING, BECAME MORE ALERT THROUGH THE MORNING,ABLE TO SPEAK AND TELL ME HIS NAME, NOW SLEEPY AGAIN. HE WAS ABLE TO SWALLOW ALL OF HIS MEDS SLOWLY, BUT NO COUGHING OR DIFFICULTY. HAS TAKEN SOME FOOD AND ORAL SUPPLIMENTS. DR CHAVIS ASKED FOR HIM TO GET UP IN THE CHAIR THIS MORNING, BUT AFTER HE SAW THE PRESSURE WOUNDS ON HIS SACRAL AREA HE SAID THAT IT'S OK FOR HIM TO ROLL SIDE TO SIDE IN BED AND ENCOURAGE EXCERCISES IN BED. SACRAL WOUNDS REDRESSED AFTER LARGE BM. DR CHAVIS SAW THE WOUNDS AND PHOTOGRAPHS TAKEN AND PUT IN CHART (SIGNED CONSENT FOR PHOTOGRAPHS IN HIS CHART). CREAM WITH ZINC AND MEPILEX DRESSINGS OVER SACRAL SORES PER DR CHAVIS. DR CHAVIS WAS ABLE TO TALK WITH PTS SON IN [facility] THIS MORNING.
--- NOTE | 2021-06-10 18:44 | NUR ---
SHIFT SUMMARY - SEE AM NOTE. A CONTINUATION OF CARE, MR FARR HAS BEEN SLEEPY BUT AROUSABLE TODAY. HE EATS AND DRINKS WITH PERSUASION, TAKES HIS MEDS WITH PROMPTING. HE HAS TO BE REMINDED TO OPEN HIS EYES AND TO SUCK THROUGH THE STRAW. BUTTOCK PRESSURE WOUND WAS CHANGED THREE TIMES TODAY AFTER BOWEL MOVEMENTS. 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 MEPILEX TO RIGHT BUTTOCK WOUND WHICH IS MUCH SMALLER AND MINIMAL DISCHARGE NOTED. SCROTAL WOUND CLEANED, ZINC CREAM APPLIED AND LEFT UNCOVERED. Q2HRLY TURNS DONE THROUGHOUT THE DAY. MR FARR LOOKED COMFORTABLE THROUGHOUT THE DAY, DENIED PAIN. BED LOW, CALL LIGHT IN REACH AND BED ALARM ON.
--- NOTE | 2021-06-11 04:35 | NUR ---
SHIFT SUMMARY Patient is alert and oriented, he is not in any acute distress. Patient slept most of the shift confortably. Vital stable, no complaint of pain. Bed in low position, call light within reach. We will continue to monitor patient until report given to the oncoming nurse.
[2021-06-11 05:09] LABS: BASOPHILS PERCENT AUTO 1 % (0-2); EOSINOPHILS ABSOLUTE AUTO 1.39 K/mm3 (0.00-0.68); EOSINOPHILS PERCENT AUTO 12 % (0-6); Hematocrit 37.9 % (37.0-53.0); Hemoglobin 12.2 g/dL (13.5-17.5); IMMATURE GRAN PERCENT AUTO 3 % (0-1); LYMPHOCYTES ABSOLUTE AUTO 1.74 K/mm3 (0.84-5.20); LYMPHOCYTES PERCENT AUTO 15 % (21-46); MONOCYTES ABSOLUTE AUTO 0.87 K/mm3 (0.16-1.47); MONOCYTES PERCENT AUTO 8 % (4-13); Mean Corpuscular HGB Conc 32.2 g/dL (31.5-36.5); Mean Corpuscular Volume 93 fL (80-100); Mean Platelet Volume 8.4 fL (9.1-12.4); NEUTROPHILS ABSOLUTE AUTO 6.88 K/mm3 (1.96-9.15); NEUTROPHILS PERCENT AUTO 61 % (41-73); Platelet Count 370 K/mm3 (150-400); RDW Coefficient Variation 13.9 % (11.7-14.2); RDW Standard Deviation 47.4 fL (35.1-46.3); Red Blood Cell Count 4.07 M/mm3 (4.30-5.90); White Blood Cell Count 11.28 K/mm3 (4.00-11.30)
[2021-06-11 05:27] LABS: Albumin, Blood 2.5 g/dL (3.4-5.0); Anion Gap 4 mmol/L (6-16); Blood Urea Nitrogen 40 mg/dL (8-24); Bun/Creatinine Ratio 28.8 (12.0-20.0); CO2, Blood 33 mmol/L (21-32); Calcium, Blood 8.7 mg/dL (8.5-10.1); Chloride, Blood 103 mmol/L (98-108); Creatinine, Blood 1.39 mg/dL (0.60-1.20); Glomerular Filtration Rate 49 (60-); Glucose, Blood 112 mg/dL (70-99); Phosphorus, Blood 4.3 mg/dL (2.5-4.9); Potassium, Blood 4.1 mmol/L (3.5-5.5); Sodium, Blood 140 mmol/L (136-145)
--- NOTE | 2021-06-11 18:46 | NUR ---
PT ALERT AND ORIENTED TO SELF, CONFUSED AT TIMES. PT UNABLE TO FOLLOW DIRECTIONS WITHOUT CONFUSION. PATIENT HAD A MEDIUM BM TODAY. SACRAL WOUND CLEANED AND DRESSING CHANGED. VITALS REMAIN STABLE. BROUSSARD PATENT AND DRAINING. WILL REPORT TO ONCOMING RN UPON ARRIVAL.
--- NOTE | 2021-06-12 07:30 | NUR ---
ASSUMED CARE: PT RESTING QUIETLY AT THIS TIME. VERY DROWSY, MOVES EYE BROWS AND MUMBLES WHEN NAME IS SAID. NIGHT RN REPORTS THAT PT HAS BEEN LIKE THIS AT TIMES. NO ACUTE NEEDS AT THIS TIME.
--- NOTE | 2021-06-12 13:50 | NUR ---
PHYSICAL THERAPY WENT INTO ROOM TO WORK WITH PT AND EXPRESSED CONCERN ABOUT LACK OF PROGRESS. ASKED FOR PALLIATIVE CARE CONSULT TO BE PLACED. DISCUSSED WITH PALLIATIVE CARE NURSE TO REVIEW PT'S CASE. PHYSICAL THERAPY AT BEDSIDE AT THIS TIME.
--- NOTE | 2021-06-12 18:20 | NUR ---
SHIFT SUMMARY: PT CONTINUES TO REQUIRE A LOT OF ASSISTANCE WITH CARE. NEEDS A LOT OF PROMPTING AND FEED ASSISTANCE AND REQUIRES FREQUENT REPOSITIONING FOR BED SORES. PT/OT REQUESTED PALLIATIVE CARE FOR PT. PALLIATIVE CARE STATES THEY WILL FOLLOW UP WITH PT TOMORROW. NO ACUTE NEEDS AT THIS TIME.
--- NOTE | 2021-06-12 22:14 | NUR ---
Fed patient half cup of fruit and consumed 1 nepro shake. Repositioned for comfort. Safety maintained.
--- NOTE | 2021-06-13 05:51 | NUR ---
Turned and repositioned patient q2hrs and as needed through night. fuids encouraged at bedside. Denies pain or SOB, respirations even and unlabored. Safety maintained, call cummings in reach.
[2021-06-13 11:57] LABS: Influenza A, PCR NEGATIVE (NEGATIVE); Influenza B, PCR NEGATIVE (NEGATIVE); Resp Syncytial Virus, PCR NEGATIVE (NEGATIVE); SARS-Cov-2 (COVID-19) PCR, MMC NEGATIVE (NEGATIVE)
[2021-06-13] MEDS ORDERED: FURO20 PO (12:07)
[2021-06-13] MEDS ORDERED: ASPI81CH PO (12:07)
[2021-06-13] MEDS ORDERED: POTA10T PO (12:07)
[2021-06-13] MEDS ORDERED: TRAM50 PO (12:08)
--- NOTE | 2021-06-13 13:21 | NUR ---
REPORT TO [facility] AT [facility]. ANSWER ALL QUESTIONS. AWARE TRANSPORT AT AROUND 1415. VERBALIZES UNDERSTANDING
--- NOTE | 2021-06-13 14:36 | NUR ---
IN CART TO [facility].
== END 2021-06-13 14:35 | DRG 682 ==
LOC: ER 19:02 → MEDS 23:37
PROVIDERS: Emergency Medicine; Family Medicine; Hospitalist; ADMIT Internal Medicine
DX: N17.9 Acute kidney failure, unspecified (principal); J18.9 Pneumonia, unspecified organism; E87.2 Acidosis; M62.82 Rhabdomyolysis; E87.1 Hypo-osmolality and hyponatremia; J81.1 Chronic pulmonary edema; E44.0 Moderate protein-calorie malnutrition; R62.7 Adult failure to thrive; Z23 Encounter for immunization; L89.152 Pressure ulcer of sacral region, stage 2; Z20.822 Contact with and (suspected) exposure to COVID-19; J45.909 Unspecified asthma, uncomplicated; R25.1 Tremor, unspecified; D63.8 Anemia in other chronic diseases classified elsewhere; I48.91 Unspecified atrial fibrillation; I10 Essential (primary) hypertension; R33.9 Retention of urine, unspecified; R74.01 Elevation of levels of liver transaminase levels; E86.0 Dehydration; M10.9 Gout, unspecified; Z85.46 Personal history of malignant neoplasm of prostate; Z98.41 Cataract extraction status, right eye; Z98.42 Cataract extraction status, left eye; Z90.49 Acquired absence of other specified parts of digestive tract; Z98.890 Other specified postprocedural states; Z87.891 Personal history of nicotine dependence; Z88.1 Allergy status to other antibiotic agents; Z88.8 Allergy status to other drugs, medicaments and biological substances; Z79.01 Long term (current) use of anticoagulants; Z79.899 Other long term (current) drug therapy
CPT/HCPCS: 0241U; 36415; 51702; 70450; 70551; 71045; 76770; 80053; 80069; 80076; 82550; 82553; 82947; 83735; 83874; 84100; 84145; 84439; 84443; 84484; 85025; 85610; 85651; 85730; 86141; 90686; 93005; 93010; 94640; 94664; 94760; 96365; 96376; 97110; 97162; 97165; 97530; 97535; 99285-25; A9270; G0008; G0378; J0456; J1100; J1940; J7030; J7050